=== PATIENT | male | born 1960 | race Caucasian/White ===

== ENCOUNTER 2019-02-10 20:53 | Emergency (ER) | payer OTHER, SELFPAY ==
[2019-02-10] MEDS ORDERED: Adacel (T-DAP) 0.5 ML SYRINGE ONE (21:28)
[2019-02-10] MEDS ORDERED: Amoxicillin/Potassium Clav 875 MG TAB ONE (22:04)
== END 2019-02-10 22:15 | disposition home or self-care (01) ==
LOC: BURERS 20:53
DX: S61.452A Open bite of left hand, initial encounter (principal); W54.0XXA Bitten by dog, initial encounter
CPT/HCPCS: 12002; 90471; 90715

== ENCOUNTER 2023-10-28 18:16 | Emergency (ER) | payer OTHER, SELFPAY ==
[2023-10-28] MEDS ORDERED: HYDROcodone/Acetaminophen 5/325 mg Tablet ONE (21:07)
[2023-10-28] MEDS ORDERED: Erythromycin Base 0.5% Ophth Oint 3.5 gm Tube ONE (21:07)
== END 2023-10-28 21:32 | disposition home or self-care (01) ==
LOC: BURERS 18:16
DX: T15.02XA Foreign body in cornea, left eye, initial encounter (principal); X58.XXXA Exposure to other specified factors, initial encounter
CPT/HCPCS: 65220